=== PATIENT | male | born 1990 | race Caucasian/White ===

== ENCOUNTER 2017-04-22 19:18 | Emergency (ER) | payer BC, OTHER ==
[~2017-04-22] VITALS: Ht 177.8 cm; Wt 148.5 kg
[2017-04-22 19:23] VITALS: Ht 177.8 cm; Wt 148.5 kg
[2017-04-22] MEDS ORDERED: SOD CHLORIDE 0.9% 250 ML IV ONE (21:00)
--- NOTE | 2017-04-22 21:03 | ERD ---
ER Documentation Chief Complaint Chief Complaint RLE swelling and painful to palpitation and redness to calf area HPI 26-year-old male who presented emergency department for right lower extremity swelling and pain, palpitation, redness to calf area for 2 days that is nontraumatic. Works as a fork lift truck operator and seated, driving most of the day. Also a smoker.Denies headache, dizziness, neck pain, shoulder pain, chest pain, back pain, abdominal pain, nausea, vomiting, constipation, diarrhea, loss of bowel bladder control, changes in bowel or bladder habits, recent exposure to any illness, fever, chills, numbness or tingling sensation. ROS All systems reviewed and are negative except as per history of present illness. Medications Home Meds Active Scripts Sulfamethoxazole/Trimethoprim* (Bactrim Ds* Tablet) 1 Each Tablet, 1 TAB PO BID for 7 Days, #14 TAB Prov:GERARD ALARCON F 04/23/17 Amoxicillin/Potassium Clav (Amox-Clav 875-125 mg Tablet) 875-125 mg Tab, 1 TAB PO BID for 10 Days, #20 TAB Prov:GERARD ALARCON F 04/23/17 Hydrocodone/Acetaminophen ([place] 10-325 Tablet) 1 Each Tablet, 1 TAB PO Q6H Y for PAIN, #20 TAB Prov:GERARD ALARCON F 04/23/17 Allergies Allergies: Coded Allergies: No Known Allergy (Unverified , 04/22/17) Physical Exam Vitals Vital Signs Date Time Temp Pulse Resp B/P Pulse Ox O2 Delivery O2 Flow Rate FiO2 04/23/17 00:18 78 17 115/63 98 Room Air 04/22/17 19:23 99.9 130 20 118/64 96 Physical Exam Const: Alert and oriented. Not in respiratory distress. Head: Atraumatic Eyes: Normal Conjunctiva ENT: Normal External Ears, Nose and Mouth. Neck: Full range of motion..~ No meningismus. Resp: Clear to auscultation bilaterally Cardio: Regular rate and rhythm, no murmurs Abd: Soft, non tender, non distended. Normal bowel sounds Skin: No petechiae or rashes Back: No midline or flank tenderness Ext: No cyanosis. Right lower extremity/calf area swelling with tenderness. 1+ pitting edema to anterior aspect of the right thigh. Right pedal pulse is good. No neurovascular deficits. Neur: Awake and alert Psych: Normal Mood and Affect Result Diagram: 04/22/17219904/22/172199 Results 24 hrs Laboratory Tests Test 04/22/17 22:00 White Blood Count 10.410^3/ul Red Blood Count 4.5510^6/ul Hemoglobin 14.3g/dl Hematocrit 41.7% Mean Corpuscular Volume 91.6fl Mean Corpuscular Hemoglobin 31.4pg Mean Corpuscular Hemoglobin Concent 34.3g/dl Red Cell Distribution Width 12.2% Platelet Count 69529^3/UL Mean Platelet Volume 10.9fl Neutrophils % 63.0% Lymphocytes % 22.9% Monocytes % 8.3% Eosinophils % 5.1% Basophils % 0.3% Nucleated Red Blood Cells % 0.0/100WBC Neutrophils # 6.610^3/ul Lymphocytes # 2.410^3/ul Monocytes # 0.910^3/ul Eosinophils # 0.510^3/ul Basophils # 0.010^3/ul Nucleated Red Blood Cells # 0.010^3/ul Prothrombin Time 13.1Sec Prothrombin Time Ratio 1.0 INR International Normalized Ratio 0.99 Activated Partial Thromboplast Time 28.3Sec Urine Color YELLOW Urine Clarity CLEAR Urine pH 6.0 Urine Specific Krebs 1.021 Urine Ketones NEGATIVEmg/dL Urine Nitrite NEGATIVEmg/dL Urine Bilirubin NEGATIVEmg/dL Urine Urobilinogen 1+mg/dL Urine Leukocyte Esterase NEGATIVELeu/ul Urine Hemoglobin NEGATIVEmg/dL Urine Glucose NEGATIVEmg/dL Urine Total Protein NEGATIVEmg/dl Sodium Level 141mmol/L Potassium Level 3.8mmol/L Chloride Level 105mmol/L Carbon Dioxide Level 27mmol/L Anion Gap 13 Blood Urea Nitrogen 13mg/dl Creatinine 1.05mg/dl Glucose Level 107mg/dl Lactic Acid Level 1.8mmol/L Calcium Level 9.3mg/dl Total Bilirubin 0.3mg/dl Direct Bilirubin 0.00mg/dl Indirect Bilirubin 0.3mg/dl Aspartate Amino Transf (AST/SGOT) 40IU/L Alanine Aminotransferase (ALT/SGPT) 63IU/L Alkaline Phosphatase 74IU/L Troponin I < 0.012ng/ml B-Type Natriuretic Peptide 33PG/ML Total Protein 7.3g/dl Albumin 3.8g/dl Globulin 3.50g/dl Albumin/Globulin Ratio 1.08 Current Medications Medications (Trade) Dose Ordered Sig/Jonny Route PRN Reason Start Time Stop Time Status Last Admin Dose Admin Sodium Chloride 250 ml @ 250 mls/hr Q1H ONCE IV 04/22/17 21:00 04/22/17 21:59 DC 04/22/17 21:00 Vancomycin HCl/ Sodium Chloride (Vancocin/NS) 250 ml @ 83.333 mls/ hr ONCE ONCE IVPB 04/22/17 21:30 04/23/17 00:19 DC 04/22/17 22:22 Procedures/MDM I have a high suspicion for DVT, CHF, sepsis and this is the reason why I worked up the patient. Treatment: IV insertion. Normal saline 50 cc IV. Vancomycin IV. Reevaluation: No neurovascular deficits. Right pedal pulse is within normal limits. EKG: Sinus tachycardia with a ventricular rate of 107 bpm. No STEMI. Read by supervising emergency room physician, Dr. Alona Crawford. Chest x-ray: Minimal platelike atelectasis or scarring of the left lung base. Otherwise negative. Right lower extremity ultrasound venous: No sonographic evidence for deep vein thrombosis. Blood works: Negative. Case was discussed with supervising emergency room physician, Dr. Neeraj Mendes, who also examined the patient and agreed with my medical decision making to discharge patient with a final diagnosis of cellulitis and prescribed him with Augmentin, Bactrim, [place]. Follow-up with PCP in the next 24-48 hours. Come back here in the emergency department for any new symptoms or any worsening of symptoms. All questions and concerns are answered. Patient verbalized understanding and agreed with the plan of care. Hemodynamically stable on discharge. Departure Diagnosis: Primary Impression: Cellulitis Condition: Stable Additional Instructions: Follow-up with PCP in the next 24-48 hours. Come back here in the emergency department for any new symptoms or any worsening of symptoms. All questions and concerns are answered. Patient verbalized understanding and agreed with the plan of care. GERARD ALARCON Apr 22, 2017 21:03
[2017-04-22] MEDS ORDERED: VANCOMYCIN 1 GM in SOD CHLORIDE 0.9% 250 ML IVPB ONE (21:30)
--- NOTE | 2017-04-22 22:02 | RADRPT ---
PROCEDURE: US Lower extremity Venous. CLINICAL INDICATION: Right leg swelling TECHNIQUE: Multiple sonographic images of the right lower extremity deep venous system was obtaine d utilizing grayscale, color-flow, compressive sonography and doppler imaging with augmentation. Th e images were reviewed on a PACS workstation. COMPARISON: None. FINDINGS: There is normal compressibility and flow within the bilateral common femoral, deep femoral, superfic ial femoral and popliteal veins. The deep veins the calf were incompletely visualized. Noted is a well demarcated serpiginous avascular mass-like density in the subcutaneous fat inferior to the popliteal fossa. This may represent a thrombosed varicose vein. IMPRESSION: No sonographic evidence for deep venous thrombosis. Question thrombosed varicose vein. .Nomi Vick MD, Date Time Electronically viewed and signed by .Nomi Vick MD, on 04/22/2017 22:02 .A/
--- NOTE | 2017-04-22 22:05 | RADRPT ---
PROCEDURE: XR Chest. CLINICAL INDICATION: Chest pain. TECHNIQUE: PA and lateral chest x-ray. COMPARISON: None. FINDINGS: The cardiomediastinal silhouette is unremarkable. There is no congestive heart failure. There is minimal plate-like atelectasis or scarring at the left lung base. There is no pleural effusion. Th ere is no pneumothorax The osseous structures are unremarkable. IMPRESSION: Minimal plate-like atelectasis or scarring at the left lung base. Otherwise negative. RPTAT: HMVK .Nathaniel Espinal MD, Date Time Electronically viewed and signed by .Nathaniel Espinal MD, on 04/22/2017 22:04 .K/
[2017-04-22 22:31] LABS: BASOPHILS % 0.3 % (0.0-2.0); EOSINOPHILS # 0.5 10^3/ul (0.0-0.5); EOSINOPHILS % 5.1 % (0.0-7.0); HEMATOCRIT 41.7 % (42.0-52.0); HEMOGLOBIN 14.3 g/dl (14.0-18.0); LYMPHOCYTES # 2.4 10^3/ul (0.8-2.9); LYMPHOCYTES % 22.9 % (15.0-51.0); MEAN CORPUSCULAR HEMOGLOBIN 31.4 pg (29.0-33.0); MEAN CORPUSCULAR HGB CONC 34.3 g/dl (32.0-37.0); MEAN CORPUSCULAR VOLUME 91.6 fl (82.0-101.0); MEAN PLATELET VOLUME 10.9 fl (7.4-10.4); MONOCYTE # 0.9 10^3/ul (0.3-0.9); MONOCYTES % 8.3 % (0.0-11.0); NEUTROPHIL # 6.6 10^3/ul (1.6-7.5); PLATELET COUNT 196 10^3/UL (140-415); RED BLOOD COUNT 4.55 10^6/ul (4.70-6.10); RED CELL DISTRIBUTION WIDTH 12.2 % (11.5-14.5); WHITE BLOOD COUNT 10.4 10^3/ul (4.8-10.8)
[2017-04-22 22:37] LABS: ADD UMIC NO; UR ASCORBIC ACID NEGATIVE (NEGATIVE); UR BILIRUBIN (Dip) NEGATIVE (NEGATIVE); UR BLOOD (Dip) NEGATIVE (NEGATIVE); UR CLARITY CLEAR (CLEAR); UR COLOR YELLOW (YELLOW); UR GLUCOSE (Dip) NEGATIVE (NEGATIVE); UR KETONES (Dip) NEGATIVE (NEGATIVE); UR LEUKOCYTE ESTERASE (Dip) NEGATIVE Leu/ul (NEGATIVE); UR NITRITE (Dip) NEGATIVE (NEGATIVE); UR SPECIFIC GRAVITY (Dip) 1.021 (1.003-1.030); UR TOTAL PROTEIN (Dip) NEGATIVE (NEGATIVE); UR UROBILINOGEN (Dip) 1+ mg/dL (NEGATIVE)
[2017-04-22 22:53] LABS: ALANINE AMINOTRANSFERASE 63 IU/L (13-69); ALBUMIN 3.8 g/dl (3.3-4.9); ALBUMIN/GLOBULIN RATIO 1.08; ALKALINE PHOSPHATASE 74 IU/L (42-121); ANION GAP 13 (8-16); ASPARTATE AMINO TRANSFERASE 40 IU/L (15-46); BILIRUBIN,INDIRECT 0.3 mg/dl (0-1.1); BILIRUBIN,TOTAL 0.3 mg/dl (0.2-1.3); BLOOD UREA NITROGEN 13 mg/dl (7-20); CALCIUM 9.3 mg/dl (8.4-10.2); CARBON DIOXIDE 27 mmol/L (21-31); CHLORIDE 105 mmol/L (97-110); CREATININE 1.05 mg/dl (0.61-1.24); GLUCOSE 107 mg/dl (70-220); POTASSIUM 3.8 mmol/L (3.5-5.1); SODIUM 141 mmol/L (135-144); TOTAL PROTEIN 7.3 g/dl (6.1-8.1)
[2017-04-22 22:55] LABS: INR 0.99; PROTIME 13.1 Sec (12.2-14.2)
[2017-04-22 22:56] LABS: PARTIAL THROMBOPLASTIN TIME 28.3 Sec (25.0-35.0)
[2017-04-22 23:06] LABS: TROPONIN-I < 0.012 ng/ml (0.00-0.12)
[2017-04-23] MEDS ORDERED: HYDR-902 PO (00:03)
[2017-04-23] MEDS ORDERED: AMOX1TAB10 PO (00:03)
[2017-04-23] MEDS ORDERED: SULF1TAB31 PO (00:04)
[2017-04-23 00:18] VITALS: BP 115/63; PULSE 78; RESP 17
== END 2017-04-23 00:19 | disposition home or self-care (01) ==
LOC: FTE 19:18
DX: L03.115 Cellulitis of right lower limb (principal); R06.02 Shortness of breath
CPT/HCPCS: 71020; 80053; 81003; 83605; 83880; 84484; 85025; 85610; 85730; 87040; 87086; 93005; 93971; J3370; J7040; J7050; 36415; 96374